=== PATIENT | male | born 1950 | race Two or more races ===

== ENCOUNTER 2020-07-07 10:25 | Inpatient (IN) | payer MEDICARE ==
[~2020-07-07] VITALS: Ht 167.6 cm; Wt 57.6 kg
--- NOTE | 2020-07-07 10:36 | NUR ---
PT IS IN ROOM #2B. DR PAINTER EVALUATED THE PT.
[2020-07-07] MEDS ORDERED: MIRT15TA7 PO (10:41)
[2020-07-07] MEDS ORDERED: CLON0.5T4 PO (10:41)
[2020-07-07] MEDS ORDERED: QUET25TA PO (10:41)
[2020-07-07 11:11] LABS: BASOPHILS % (AUTO) 0.5 % (0.0-2.0); EOSINOPHILS # (AUTO) 0.1 K/uL (0.0-0.7); EOSINOPHILS % (AUTO) 0.8 % (0.0-7.0); HEMATOCRIT 39.1 % (36.7-47.1); HEMOGLOBIN 13.8 g/dL (12.5-16.3); LYMPHOCYTES # (AUTO) 2.5 K/uL (20.0-40.0); LYMPHOCYTES % (AUTO) 33.8 % (20.5-51.5); MEAN CORPUSCULAR HEMOGLOBIN 31.1 uug (23.8-33.4); MEAN CORPUSCULAR HGB CONC 35 g/dL (32.5-36.3); MEAN CORPUSCULAR VOLUME 88.5 fL (73.0-96.2); MONOCYTES # (AUTO) 0.5 K/uL (2.0-10.0); MONOCYTES % (AUTO) 7.1 % (0.0-11.0); NEUTROPHILS # (AUTO) 4.3 K/uL (1.8-8.9); NEUTROPHILS % (AUTO) 57.8 % (38.5-71.5); PLATELET COUNT (AUTO) 274 K/uL (152-348); RED BLOOD CELL COUNT(AUTO) 4.42 MIL/uL (4.06-5.63); WHITE BLOOD COUNT (AUTO) 7.3 K/uL (3.6-10.2)
[2020-07-07 11:18] LABS: CARBON DIOXIDE 29 mmol/L (21-32); CHLORIDE 106 mmol/L (98-107); CREATININE 1.1 mg/dL (0.6-1.3); GLUCOSE 116 mg/dL (74-106); POTASSIUM 3.8 mmol/L (3.5-5.1); UREA NITROGEN, BLOOD 28 mg/dL (7-18)
[2020-07-07 11:23] LABS: ALANINE AMINOTRANSFERASE 18 U/L (16-63); ALKALINE PHOSPHATASE 68 U/L (50-136); ASPARTATE AMINOTRANSFERASE 13 U/L (15-37); BILIRUBIN,DIRECT 0.1 mg/dL (0.0-0.2); BILIRUBIN,TOTAL 0.4 mg/dL (0.2-1.0); TOTAL PROTEIN, SERUM 7.2 g/dL (6.4-8.2)
[2020-07-07 11:25] LABS: ETHANOL < 3 MG/DL (0-0)
[2020-07-07 11:28] LABS: ACETAMINOPHEN < 2.0 ug/mL (10-30)
[2020-07-07 11:33] LABS: *BILIRUBIN,URIN NEGATIVE (NEGATIVE); *BLOOD, URINE NEGATIVE (NEGATIVE); *CLARITY,URINE CLEAR (CLEAR); *COLOR,URINE YELLOW (YELLOW); *KETONES,URINE NEGATIVE (NEGATIVE); *UROBILINOGEN,URINE 0.2 E.U./dl (NORMAL); LEUKOCYTE ESTERASE ,URINE NEGATIVE (NEGATIVE); NITRITE, URINE NEGATIVE (NEGATIVE); PH,URINE 5.5 (5.0-8.0); UGLUCOSE NEGATIVE (NEGATIVE)
[2020-07-07 11:46] LABS: *AMPHETAMINE, URINE NEGATIVE (NEGATIVE); *CANNABINOID, URINE NEGATIVE (NEGATIVE); *COCCAINE, URINE NEGATIVE (NEGATIVE); *OPIATE, URINE NEGATIVE (NEGATIVE); *PHENCYCLIDINE SCREEN,URINE NEGATIVE (NEGATIVE)
[2020-07-07] MEDS ORDERED: CLONAZEPAM 0.5 MG TABLET PO ONE (13:15)
[2020-07-07] MEDS ORDERED: CLONAZEPAM 0.5 MG TABLET ONE (13:17)
--- NOTE | 2020-07-07 15:24 | NUR ---
CRISIS OVERHEAD CRANE INSPECTOR MARLI TALKED TO THE PT AND HIS SON. PT WAS PLACED ON 51/50 HOLD GRAVELY DISABLED. PT IS RESTING IN BED COMFORTABLY. NO S/S OF DISTRESS.
[2020-07-07] MEDS ORDERED: BLOOD SUGAR DIAGNOSTIC 1 EACH STRIP VI ONE (16:00)
[2020-07-07] MEDS ORDERED: ACETAMINOPHEN 650 MG SUPP.RECT RC PRN (16:00)
[2020-07-07] MEDS ORDERED: ACETAMINOPHEN 325 MG TABLET PO PRN (16:00)
[2020-07-07] MEDS ORDERED: TEMAZEPAM 7.5 MG CAPSULE PO PRN (16:00)
--- NOTE | 2020-07-07 16:00 | NUR ---
REPORT WAS GIVEN TO RN MHU. PT WAS TRANSFERED TO ROOM #141.
--- NOTE | 2020-07-07 16:05 | NUR ---
GPS: Nursing Notes: Admitting Notes: Patient admitted to [facility]HU in 5150 DTO & GD due to having episodes of aggression toward his , depressed mood and increasingly paranoid at home, accusing his of cheating on him and become verbally aggressive, not sleeping, not eating, and he has been increasingly depressed over the past month, he was referred by his outpatient psychiatrist Dr. Curtis Echevarria. On face to face assessment, depressed mood and flat affect, cooperative with staff, A/Ox4, denies any SI/HI, low energy level, poor eyes contact, stated, "Yes, I am here for therapy..", "whatever my son said, it is true..", unable to formulate a viable plan for self care, oriented to the unit, and admitting package given to patient, when staff show his room, patient went to his bed and cover his face with the blanket, Dr. Mcgee and Dr. Menon notified by charge nurse.
[2020-07-07 16:38] VITALS: BP 150/87
[2020-07-07] MEDS ORDERED: INFLUENZA VACCINE 2020-2021 0.5 ML DISP.SYRIN IM ONE (17:30)
[2020-07-07] MEDS ORDERED: PNEUMOCOCCAL 23-VAL P-SAC VAC 0.5 ML VIAL IM ONE (17:30)
[2020-07-07 20:00] VITALS: BP 133/77
[2020-07-07] MEDS: MIRTAZAPINE 15 MG TABLET PO SCH (20:32)
[2020-07-07] MEDS: risperiDONE 0.5 MG TABLET PO SCH (20:32)
--- NOTE | 2020-07-08 05:43 | NUR ---
Received patient last night in bed with the covers over his head. Big Data Analytics Lead was able to give him the PM medications without difficulty. Patient slept all night covering his face with either blankets or his hat. Poor eye contact noted and patient looks unkept and disheveled. When offered a shower , patient refused. Continuing to monitor for safety and increasing depression at this time. Total sleep so far is 9 hours and 45 minutes.
[2020-07-08 07:52] VITALS: BP 116/70
[2020-07-08 16:54] VITALS: BP 117/72
[2020-07-08] MEDS: PANTOPRAZOLE SODIUM 40 MG TABLET.DR PO SCH (17:16)
[2020-07-08] MEDS: risperiDONE 0.5 MG TABLET PO SCH (20:40)
[2020-07-08] MEDS: LORAZEPAM 1 MG TABLET PO PRN (20:41)
[2020-07-08] MEDS: MIRTAZAPINE 15 MG TABLET PO SCH (20:41)
[2020-07-08 21:12] VITALS: BP 153/95
[2020-07-08 21:25] VITALS: BP 129/83
--- NOTE | 2020-07-08 23:19 | NUR ---
Patients initial b/p was high this evening, 153/95. After PM medications were given, auto service writer rechecked and the b/p was 129/74. Continuing to monitor VS, safety and patients depression.
[2020-07-09] MEDS: PANTOPRAZOLE SODIUM 40 MG TABLET.DR PO SCH ×2 (06:07→16:38)
[2020-07-09 07:30] VITALS: BP 125/73
[2020-07-09] MEDS: THIAMINE HCL 100 MG TABLET PO SCH (08:13)
--- NOTE | 2020-07-09 08:48 | NUR ---
Firearms Report: Primer Expeditor And Drier completed and submitted a [employer] firearms report for 5150 grave disability certification. A copy of report has been placed in patient chart.
--- NOTE | 2020-07-09 10:18 | NUR ---
SW Initial Discharge Note: Patient currently resides at [address] [place] [address]; ([phone]). Patient's son David ([phone]) ([phone]) is involved in pt's care. Pt contacted pt's Tita ([phone]) and stated to discuss with son David ([phone]) who is agreeable with this life insurance underwriter that pt will require a SNF. This life insurance underwriter will work with the MD and family to help coordinate discharge.
--- NOTE | 2020-07-09 10:19 | NUR ---
SW Family Contact: Pt contacted pt's Tita ([phone]) and stated to discuss with son David ([phone]) who is agreeable with this instructional writer that pt will require a SNF. This instructional writer discussed treatment and discharge plan.
--- NOTE | 2020-07-09 11:01 | NUR ---
SW Substance Abuse Intervention: Patient was provided with a brief substance abuse intervention and will provide resources: [facility] ([phone]), [facility] ([phone]), and [facility] ([phone]).
--- NOTE | 2020-07-09 11:13 | NUR ---
Psychiatrist Contact: This blog writer contacted pt's psychiatrist Dr. Echevarria ([phone]) and was unavailable. Dr. Echevarria did not have a voicemail set up. This blog writer will attempt to contact at a later time.
--- NOTE | 2020-07-09 14:21 | NUR ---
GPS: Nursing Notes: Mood Disturbance: Depression: Patient is awake and responding to his name, cooperative with nursing care, but refusing to participate in therapeutic groups, A/Ox4, depressed mood and blunted affect, low energy level, refusing to shave, isolative and withdrawn in his room, episodes of covering his head with his blanket, poor eyes contact at times, verbally norma for safety, denies SI/HI, unable to formulate a viable plan for self care, continue to be compliant with his medications, continue with treatment plan.
[2020-07-09 15:14] VITALS: BP 115/82
[2020-07-09] MEDS: MIRTAZAPINE 15 MG TABLET PO SCH (20:27)
[2020-07-09] MEDS: risperiDONE 0.5 MG TABLET PO SCH (20:29)
[2020-07-09 20:49] VITALS: BP 126/71
--- NOTE | 2020-07-10 02:33 | NUR ---
RECEIVED PATIENT IN BED.ISOLATIVE ,WITHDRAWN WITH BLUNTED AFFECT.LOW ENERGY AND COULD BE SEEN PULLING THE BLANKET OVER HIS HEAD WITH HIS CAP ON HIS HEAD.DENIES SI/HI. HOWEVER COOPERATIVE WITH STAFF AND IS MEDICATION COMPLIANT.VISUAL CHECKS MADE ON HIM FOR SAFETY. WILL CONTINUE TO MONITOR.
[2020-07-10] MEDS: PANTOPRAZOLE SODIUM 40 MG TABLET.DR PO SCH ×2 (06:36→17:30)
--- NOTE | 2020-07-10 06:44 | NUR ---
SLEPT WELL FOR 9:15 HOURS. UP AND HAS HAD A SHOWER.
[2020-07-10 07:30] VITALS: BP 133/78
[2020-07-10] MEDS: THIAMINE HCL 100 MG TABLET PO SCH (08:37)
--- NOTE | 2020-07-10 10:27 | NUR ---
MARGARITA Coordination of Care: This race and sports book writer sent clinicals to [facility] ([phone]) for clinical review. This race and sports book writer sent medications, labs, and H & P for review.
[2020-07-10] MEDS: ENSURE ENLIVE (VAN) 240 ML LIQUID PO SCH ×2 (12:26→17:32)
--- NOTE | 2020-07-10 12:30 | NUR ---
SW Discharge Plan: Pierce Novak ([phone]) pt is accepted at [facility].
[2020-07-10 16:00] VITALS: BP 131/76
[2020-07-10] MEDS: risperiDONE 0.5 MG TABLET PO SCH (20:17)
[2020-07-10] MEDS: MIRTAZAPINE 15 MG TABLET PO SCH (20:17)
[2020-07-10 20:29] VITALS: BP 129/72
--- NOTE | 2020-07-10 22:40 | NUR ---
Patient is awake and responding to his name, cooperative with nursing care. A/Ox4, depressed mood and blunted affect, isolative and withdrawn in his room. Leona for safety, denies SI/HI, unable to formulate a viable plan for self care, continue to be compliant with his medications, continue with treatment plan. Bed in lowest position, bed locked, and bed alarm on while in bed.
[2020-07-11] MEDS: PANTOPRAZOLE SODIUM 40 MG TABLET.DR PO SCH ×2 (06:23→18:18)
[2020-07-11 07:30] VITALS: BP 125/72
[2020-07-11] MEDS: THIAMINE HCL 100 MG TABLET PO SCH (09:53)
[2020-07-11] MEDS: ENSURE ENLIVE (VAN) 240 ML LIQUID PO SCH ×3 (09:53→18:18)
[2020-07-11 16:00] VITALS: BP 130/83
[2020-07-11 20:00] VITALS: BP 115/71
[2020-07-11] MEDS: risperiDONE 0.5 MG TABLET PO SCH (20:06)
[2020-07-11] MEDS: MIRTAZAPINE 15 MG TABLET PO SCH (20:06)
[2020-07-12] MEDS: PANTOPRAZOLE SODIUM 40 MG TABLET.DR PO SCH ×2 (06:32→18:16)
[2020-07-12 07:30] VITALS: BP 131/79
[2020-07-12] MEDS: THIAMINE HCL 100 MG TABLET PO SCH (08:58)
[2020-07-12] MEDS: ENSURE ENLIVE (VAN) 240 ML LIQUID PO SCH ×3 (08:59→18:11)
[2020-07-12 16:00] VITALS: BP 122/68
[2020-07-12 20:00] VITALS: BP 138/74
[2020-07-12] MEDS: risperiDONE 0.5 MG TABLET PO SCH (20:38)
[2020-07-12] MEDS: MIRTAZAPINE 15 MG TABLET PO SCH (20:38)
--- NOTE | 2020-07-13 05:49 | NUR ---
Received patient in bed. Medication compliant but did not want to engage in any conversation. Patient slept 10 plus hours with face covered by blankets or his hat. Will offer patient a shower this am. Patient seems to be isolative and depressed. Continuing to monitor for SI and HI or any changes in behavior.
[2020-07-13] MEDS: PANTOPRAZOLE SODIUM 40 MG TABLET.DR PO SCH ×2 (06:17→16:42)
[2020-07-13 07:30] VITALS: BP 125/71
[2020-07-13] MEDS: ENSURE ENLIVE (VAN) 240 ML LIQUID PO SCH ×3 (08:21→16:42)
[2020-07-13] MEDS: THIAMINE HCL 100 MG TABLET PO SCH (08:21)
--- NOTE | 2020-07-13 11:12 | NUR ---
PC Hearing: Probable cause was held today for grave disability.
[2020-07-13 15:16] VITALS: BP 142/83
[2020-07-13 20:09] VITALS: BP 135/74
[2020-07-13] MEDS: MIRTAZAPINE 15 MG TABLET PO SCH (21:03)
[2020-07-13] MEDS: risperiDONE 0.5 MG TABLET PO SCH (21:03)
[2020-07-14 07:30] VITALS: BP 119/71
[2020-07-14] MEDS: ENSURE ENLIVE (VAN) 240 ML LIQUID PO SCH ×3 (08:11→17:04)
[2020-07-14] MEDS: THIAMINE HCL 100 MG TABLET PO SCH (08:11)
[2020-07-14] MEDS: PANTOPRAZOLE SODIUM 40 MG TABLET.DR PO SCH ×2 (08:11→17:04)
[2020-07-14 15:53] VITALS: BP 125/77
[2020-07-14 20:00] VITALS: BP 112/63
[2020-07-14] MEDS: MIRTAZAPINE 15 MG TABLET PO SCH (20:48)
[2020-07-14] MEDS: risperiDONE 0.5 MG TABLET PO SCH (20:49)
[2020-07-15] MEDS: PANTOPRAZOLE SODIUM 40 MG TABLET.DR PO SCH ×2 (06:08→16:31)
--- NOTE | 2020-07-15 06:13 | NUR ---
Patient slept 945 hours last night. Staying isolated in his room and not wanting to engage in any meaningful conversation or talk at all. Patient denied SI, but appears depressed. Continuing to monitor for safety and any needs patient might have.
[2020-07-15 07:30] VITALS: BP 139/83
[2020-07-15] MEDS: ENSURE ENLIVE (VAN) 240 ML LIQUID PO SCH ×3 (08:07→16:31)
[2020-07-15] MEDS: THIAMINE HCL 100 MG TABLET PO SCH (08:07)
[2020-07-15 16:00] VITALS: BP 147/77
--- NOTE | 2020-07-15 18:54 | NUR ---
Left pt. in bed resting aaox3, compliant with nursing care remains isolated in room.
[2020-07-15 20:00] VITALS: BP 166/88
[2020-07-15] MEDS: MIRTAZAPINE 15 MG TABLET PO SCH (20:04)
[2020-07-15] MEDS: risperiDONE 0.5 MG TABLET PO SCH (20:05)
[2020-07-15 21:00] VITALS: BP 121/74
[2020-07-15] MEDS: LORAZEPAM 1 MG TABLET PO PRN (21:04)
--- NOTE | 2020-07-15 21:32 | NUR ---
Recorded routine blood pressure reading was 166/88. Upon re-evaluation, the correct blood pressure was recorded as 121/74 & HR= 79. will continue to monitor
[2020-07-16] MEDS: PANTOPRAZOLE SODIUM 40 MG TABLET.DR PO SCH ×2 (06:16→16:21)
[2020-07-16 07:30] VITALS: BP 133/56
[2020-07-16] MEDS: THIAMINE HCL 100 MG TABLET PO SCH (08:39)
[2020-07-16] MEDS: ENSURE ENLIVE (VAN) 240 ML LIQUID PO SCH ×3 (08:40→16:22)
[2020-07-16 15:16] VITALS: BP 123/79
[2020-07-16] MEDS: risperiDONE 0.5 MG TABLET PO SCH (20:02)
[2020-07-16] MEDS: MIRTAZAPINE 15 MG TABLET PO SCH (20:02)
[2020-07-16 21:13] VITALS: BP 129/74
--- NOTE | 2020-07-17 00:16 | NUR ---
RECEIVED PATIENT IN BED. ISOLATIVE WITHDRAWN,LOW ENERGY AND APPEARS DEPRESSED.DENIES SI/HI. HOWEVER COOPERATIVE WITH STAFF AND IS MEDICATION COMPLIANT.VISUAL CHECKS MADE ON HIM FOR SAFETY. WILL CONTINUE TO MONITOR.
[2020-07-17] MEDS: PANTOPRAZOLE SODIUM 40 MG TABLET.DR PO SCH ×2 (06:12→16:08)
--- NOTE | 2020-07-17 06:52 | NUR ---
SLEPT FOR 10HOURS.
[2020-07-17 07:30] VITALS: BP 111/70
[2020-07-17] MEDS: THIAMINE HCL 100 MG TABLET PO SCH (08:02)
[2020-07-17] MEDS: ENSURE ENLIVE (VAN) 240 ML LIQUID PO SCH ×3 (08:03→16:08)
--- NOTE | 2020-07-17 15:10 | NUR ---
Family Contact: SW called the pts son, David ([phone]), and left a voicemail stating that the pt has placement and that the SW would like to discuss the plan when the pts son can give her a call back.
--- NOTE | 2020-07-17 15:46 | NUR ---
SNF Contact: Kishore ([phone]) from [facility] contacted the and stated that admissions is closed for 2 weeks due to a COVID outbreak.
--- NOTE | 2020-07-17 15:46 | NUR ---
SNF Referral: MARGARITA faxed a referral to [facility] with attention to Elliot to the fax number: [phone].
[2020-07-17 16:00] VITALS: BP 117/76
[2020-07-17] MEDS: MAGNESIUM HYDROXIDE 30 ML LIQUID UDC PO PRN (18:28)
[2020-07-17 20:11] VITALS: BP 108/63
[2020-07-17] MEDS: risperiDONE 0.5 MG TABLET PO SCH (20:28)
[2020-07-17] MEDS: MIRTAZAPINE 15 MG TABLET PO SCH (20:28)
[2020-07-18] MEDS: PANTOPRAZOLE SODIUM 40 MG TABLET.DR PO SCH ×2 (06:33→17:07)
[2020-07-18 07:30] VITALS: BP 119/73
--- NOTE | 2020-07-18 08:50 | NUR ---
SNF Contact: Keya ([phone]) from [facility] and she stated that the pt was accepted and will be placed in Rm 58B.
[2020-07-18] MEDS: THIAMINE HCL 100 MG TABLET PO SCH (08:58)
[2020-07-18] MEDS: ENSURE ENLIVE (VAN) 240 ML LIQUID PO SCH ×3 (08:59→17:07)
--- NOTE | 2020-07-18 11:07 | NUR ---
Family Contact: SW called the pts son, David ([phone]), and informed him about the placement option for the pt. Pts son stated that he accepts it and that he would want to know when the pt is being discharged. SW stated that she will inform him.
[2020-07-18] MEDS: MAGNESIUM HYDROXIDE 30 ML LIQUID UDC PO PRN (13:44)
--- NOTE | 2020-07-18 15:21 | NUR ---
Family Contact: MARGARITA called the pts son, David ([phone]), and informed him that the pt will be discharged to the facility tomorrow per MD.
[2020-07-18 16:00] VITALS: BP 133/80
--- NOTE | 2020-07-18 16:25 | NUR ---
Pt received, assessed, able to make needs known and CFS. Pt denies SI/HI, AH/VH. Pt cooperative with care provided and compliant with medications as offered. Pt is isolative and keeps to self throughout the shift. Spoke with on the phone. All comfort and safety measures implemented. Will continue to monitor Pt for safety.
[2020-07-18 20:26] VITALS: BP 114/69
[2020-07-18] MEDS: risperiDONE 0.5 MG TABLET PO SCH (20:36)
[2020-07-18] MEDS: MIRTAZAPINE 15 MG TABLET PO SCH (20:36)
--- NOTE | 2020-07-18 22:30 | NUR ---
Patient received in bed awake and able to make needs known. Pt denies SI/HI, AH/VH. Pt cooperative with care provided and compliant with medications as offered. Pt is isolative and keeps to self throughout the shift. All comfort and safety measures implemented. Will continue to monitor Pt for safety.
[2020-07-19] MEDS: PANTOPRAZOLE SODIUM 40 MG TABLET.DR PO SCH (06:20)
[2020-07-19 07:30] VITALS: BP 114/70
[2020-07-19] MEDS: THIAMINE HCL 100 MG TABLET PO SCH (08:52)
--- NOTE | 2020-07-19 09:28 | NUR ---
Discharge Note: Pt was discharged to [facility] (SNF) located at [address] [place] [address], . Pt will be placed in Rm 58B. Pt was transported via [facility] at 1200. Pts son, David ([phone]), was made aware of the discharge. Upon discharge, the pt appeared to be in a euthymic mood and presented with a calm affect. Pt denied both suicidal and homicidal ideation as well as auditory and visual hallucinations. Pt appeared to be disheveled and ungroomed. Pt appeared to be ambulatory with an unsteady gait. Pt will be under the care of his psychiatrist, Dr. Mcgee, located at [address] [place] [address]; and electronics engineering manager, Dr. Golden, located at [address], [address], [place] [address]; . Pt signed his Choice of Vendor form. The multidisciplinary exit care form was done, printed, signed, and given to the patient.
[2020-07-19] MEDS: ENSURE ENLIVE (VAN) 240 ML LIQUID PO SCH ×2 (09:45→13:01)
--- NOTE | 2020-07-19 10:39 | NUR ---
Gps/Operator/Assistant Foreman- patient was well informed of his discharged plan today to [facility]. Covid swab test was done. Ambulance pickle processor time arranged at 1400 .
--- NOTE | 2020-07-19 13:25 | NUR ---
Gps/locomotive pipe fitter- Called [facility]. , report was given to Salome Rn, informed of estimated oyster picker time @ 1400 via ambulance.
--- NOTE | 2020-07-19 14:27 | NUR ---
Gps/Lace Roller Operator- Discharged to [facility] via ambulance, all belongings given back to patient. Patient in good spirit, denies any discomfort, no complaints.
== END 2020-07-19 14:32 | DRG 885 ==
LOC: ER 10:25 → GPS 15:37
PROVIDERS: ADMIT Psychiatry & Neurology Psychiatry; ATTEND Nurse Practitioner Acute Care
DX: F32.3 Major depressive disorder, single episode, severe with psychotic features (principal); F41.9 Anxiety disorder, unspecified; F03.90 Unspecified dementia, unspecified severity, without behavioral disturbance, psychotic disturbance, mood disturbance, and anxiety; F29 Unspecified psychosis not due to a substance or known physiological condition; Z73.6 Limitation of activities due to disability; F10.10 Alcohol abuse, uncomplicated
CPT/HCPCS: 36415; 71045; 85025; 90686; 90732; 93005; G0480